=== PATIENT | female | born 1965 | race Two or more races ===

== ENCOUNTER → 2016-05-23 | Outpatient (CLI) | payer OTHER | END | disposition home or self-care (01) | LOC: LAB 09:11 | PROVIDERS: ATTEND Physician Assistant | DX: T14.8 Other injury of unspecified body region (principal); W27.3XXA Contact with needle (sewing), initial encounter | CPT/HCPCS: 36415; 86703; 86706; 86803; 87340 ==

== ENCOUNTER → 2016-09-09 | Outpatient (CLI) | payer OTHER ==
[2016-09-09 14:24] LABS: Basophils # (auto) 0 uL; Basophils % (auto) 0.3 % (0.0-2.0); CONDITION Y; DEFINITIVE SEE PRINTOUT; Eosinophils # (auto) 0.2 uL; Eosinophils % (auto) 3.1 % (0.0-7.0); Hematocrit 39.4 % (36.0-46.0); Lymphocytes % (auto) 30.3 % (10.0-50.0); Mean Corpuscular Hemoglobin 26.9 pg (28.0-32.0); Mean Corpuscular Volume 81.6 fL (80.0-100.0); Mean Platelet Volume 7.1 fL (7.4-10.4); Monocytes # (auto) 0.4 uL; Monocytes % (auto) 6.2 % (0.0-12.0); Neutrophils # (auto) 3.9 uL; Neutrophils % (auto) 60.1 % (37.0-80.0); Platelet Count (auto) 287 10^3/uL (140-450); Red Cell Distribution Width 13.2 % (11.6-16.0); White Blood Cell 6.6 10^3/uL (4.4-10.8)
[2016-09-09 14:47] LABS: Albumin 3.6 g/dL (3.4-5.0); Alkaline Phosphatase 71 U/L (45-117); Anion Gap 8 (5-15); Aspartate Aminotransferase 23 U/L (15-37); BUN/Creatinine Ratio 28.6; Bilirubin, Direct < 0.1 mg/dL (0-0.2); Bilirubin, Total 0.2 mg/dL (0.2-1.0); Blood Urea Nitrogen 22 mg/dL (7-18); Calcium 8.8 mg/dL (8.5-10.1); Carbon Dioxide 28 mmol/L (21-32); Chloride 104 mmol/L (98-107); GFR African American 101 mL/min; GFR Non-African American 83 mL/min; Glucose 84 mg/dL (74-106); Potassium 4.1 mmol/L (3.5-5.1); Sodium 140 mmol/L (136-145); Total Protein 7.4 g/dL (6.4-8.2)
== END | disposition home or self-care (01) ==
LOC: LAB 13:56
DX: L76.12 Accidental puncture and laceration of skin and subcutaneous tissue during other procedure (principal)
CPT/HCPCS: 36415; 80048; 80076; 85025; 86703; 86704; 86706; 86708; 86803; 87340